=== PATIENT | male | born 1955 | race Caucasian/White ===

== ENCOUNTER → 2016-05-16 | Outpatient (CLI) | payer OTHER ==
[~2016-05-16] MED LIST: ACHD5005 PO; ASP325T; CA C1TAB26 PO; CARV20CP; CARV6.252 PO; CLON0.5T3; CYCL10TA9 PO; DEXL60CA5 PO; FLAXSEED OIL; FOLI1TAB7; HCT25T; NAPR220T29 PO; NIAC1TBM5; OMEG-90 PO; SILD25TA
--- NOTE | 2016-05-16 17:14 | Diagnostic Imaging Report ---
Renal ultrasound. INDICATION: History of renal disease. FINDINGS: The right kidney is 10.2 and the left kidney is 12 cm in length. There is no hydronephrosis or focal lesion. The urinary bladder is empty and, therefore, is not well evaluated. IMPRESSION: No hydronephrosis or focal lesion seen in either kidney. Dictated by: Dictated on workstation # [id number]
== END ==
LOC: RAD 15:11
PROVIDERS: ATTEND Nurse Practitioner Family
DX: I10 Essential (primary) hypertension (principal); Z84.1 Family history of disorders of kidney and ureter
CPT/HCPCS: 76770

== ENCOUNTER → 2016-07-26 | Outpatient (CLI) | payer OTHER | LOC: CARD 15:10 | PROVIDERS: ATTEND Internal Medicine Cardiovascular Disease | DX: I10 Essential (primary) hypertension (principal); E78.2 Mixed hyperlipidemia; I49.3 Ventricular premature depolarization; I65.23 Occlusion and stenosis of bilateral carotid arteries | CPT/HCPCS: 93225; 93226 ==

== ENCOUNTER → 2016-08-29 | Outpatient (CLI) | payer OTHER ==
--- NOTE | 2016-08-29 17:24 | STRESS TEST ---
PROCEDURE PHYSICIAN: DENISE CLIFFORD DATE OF PROCEDURE: 08/29/2016 EXERCISE STRESS ECHOCARDIOGRAM REPORT: REFERRING PHYSICIAN: Dr. Nguyen BASELINE HEART RATE: 60 BASELINE BLOOD PRESSURE: 125/76 BASELINE EKG: Sinus rhythm with no ischemic changes. IN SUMMARY: The patient started exercising with a baseline heart rate, blood pressure, EKG mentioned above. He was able to exercise for a total of 9 minutes on standard Johnson protocol, achieving maximum heart rate of 138, which is 86% of maximum expected heart rate. With peak exercise level, EKG was showing minimal nondiagnostic changes. Blood pressure at peak was 207/83. During recovery, heart rate and blood pressure returned to baseline. EKG returned to baseline. Echocardiographic images were acquired and reviewed in the parasternal long axis parasternal short axis, apical 4 chamber and apical 2 chamber views. Review of the images showed normal left ventricular size with normal contractility with no ischemic changes. Ejection fraction 60%. IN CONCLUSION: 1. Good exercise tolerance a total of 9 minutes on standard Johnson protocol. Total of 10.1 METs achieving 86% of maximum expected heart rate. 2. Hypertensive response to exercise, returned to baseline during recovery. 3. Minimal nondiagnostic EKG changes with exercise, returned to baseline during recovery. 4. Normal echocardiographic images at rest and with peak stress images with no ischemic changes. Estimated ejection fraction is 60%. Job ID: [id number] Dictated Date: 08/29/2016 16:59:58 Garage Door Installer Date: 08/29/2016 17:19:18 / rigo
== END ==
LOC: CARD 13:55
PROVIDERS: ATTEND Internal Medicine Cardiovascular Disease
DX: I10 Essential (primary) hypertension (principal); E78.2 Mixed hyperlipidemia; I49.3 Ventricular premature depolarization; I65.23 Occlusion and stenosis of bilateral carotid arteries

== ENCOUNTER → 2016-09-12 | Outpatient (CLI) | payer OTHER ==
--- NOTE | 2016-09-12 18:59 | Diagnostic Imaging Report ---
INDICATION: Chronic low back pain. No known injury TECHNIQUE: AP, Lateral and Spot imaging of the lumbar spine CORRELATION STUDY: None FINDINGS: Lumbar spinal alignment relatively anatomic. Lumbar vertebral body heights maintained. Asymmetric disc space narrowing mild severity at L4-L5 and L5-S1 levels. Minimal endplate lipping. SI joints without significant effusion or erosion. Mild vascular calcifications suggested about the abdominal aorta. IMPRESSION: No radiographic evidence for acute bony abnormality of the lumbar spine. Mild degenerative changes present. Dictated by: Dictated on workstation # [id number]
== END ==
LOC: RAD 16:39
PROVIDERS: ATTEND Nurse Practitioner Family
DX: M54.5 Low back pain (principal)
CPT/HCPCS: 72100

== ENCOUNTER → 2017-08-05 | Outpatient (CLI) | payer OTHER ==
--- NOTE | 2017-08-05 08:48 | Diagnostic Imaging Report ---
PROCEDURE: US Hepatic (Liver). TECHNIQUE: Multiple real-time grayscale images were obtained over the right upper quadrant in various projections. INDICATION: Elevated liver function studies. FINDINGS: Hepatic echotexture suggest at least mild steatosis but there is no evidence for solid or cystic liver mass. There is no intra-or extrahepatic bile duct dilatation. The gallbladder was normal. The portal venous flow is in the normal hepatopetal direction and the unobstructed right kidney appeared normal. The pancreas was largely obscured by bowel gas. There was no ascites. IMPRESSION: Echodense liver suggest steatosis. No biliary abnormality, ascites or fluid collection. Dictated by: Dictated on workstation # [id number]
== END ==
LOC: RAD 07:35
PROVIDERS: ATTEND Nurse Practitioner Family
DX: R74.8 Abnormal levels of other serum enzymes (principal)
CPT/HCPCS: 76705

== ENCOUNTER → 2018-07-28 | Outpatient (CLI) | payer OTHER ==
--- NOTE | 2018-07-28 16:53 | Diagnostic Imaging Report ---
INDICATION: Left flank pain COMPARISON: Lumbar spine radiograph dated 09/12/2016 FINDINGS: Single supine radiographic view of the abdomen was obtained and demonstrates nondistended loops of small bowel. There is no large collection of free peritoneal air. Moderate air and stool are seen scattered throughout the colon. There is subtle 1 cm extraosseous opacity projecting over the medial margins of the left 12th rib in the expected location of the left renal pelvis. Several small calcifications are also noted projecting over the bilateral hemipelvis and are likely on the basis of venous phleboliths. Bony structures show no gross acute abnormalities. IMPRESSION: 1. Nonobstructed small bowel gas pattern. 2. Moderate colonic air and stool. Please correlate for constipation 3. 1 cm subtle extraosseous opacity projecting over the left 12th rib. This could be artifact related to debris within the large or small bowel. Renal collecting system calculus however cannot be entirely excluded. May want to consider correlating with CT. Dictated by: Dictated on workstation # [id number]
== END ==
LOC: LAB 16:07
PROVIDERS: ATTEND Family Medicine
DX: M89.9 Disorder of bone, unspecified (principal); R10.9 Unspecified abdominal pain; R82.90 Unspecified abnormal findings in urine
CPT/HCPCS: 74018

== ENCOUNTER → 2018-08-27 | Outpatient (CLI) | payer OTHER ==
--- NOTE | 2018-08-27 16:20 | Diagnostic Imaging Report ---
PROCEDURE: CT urinary tract, rule out kidney stone. TECHNIQUE: Multiple contiguous axial images were obtained through the abdomen and pelvis without the use of intravenous contrast. Auto Exposure Controls were utilized during the CT exam to meet ALARA standards for radiation dose reduction. INDICATION: Back pain. FINDINGS: No comparison available. There is mild bibasilar atelectasis. Liver is normal. No focal liver lesions are seen. Gallbladder is normal. No biliary ductal dilation. Pancreas, spleen and adrenal glands are normal. The right kidney is normal without hydronephrosis. No right-sided renal or ureteral calculi. There is a nonobstructing 7 mm left lower pole renal stone. No ureteral calculi are seen on the left. No hydronephrosis. Urinary bladder is decompressed. Prostate is enlarged. There is extensive diverticulosis of the entire colon without evidence for active inflammation. The appendix is normal. No dilated loops of large or small bowel. No abdominal or pelvic lymphadenopathy. There is a fat-containing umbilical hernia. No free fluid or air. The abdominal aorta is normal in caliber. There are no suspicious osseous lesions. IMPRESSION: 1. Nonobstructing left lower pole renal stone. No ureteral calculi. 2. Diverticulosis without diverticulitis. Dictated by: Dictated on workstation # [id number]
== END ==
LOC: RAD 15:17
PROVIDERS: ATTEND Nurse Practitioner Family
DX: N20.0 Calculus of kidney (principal); K57.30 Diverticulosis of large intestine without perforation or abscess without bleeding
CPT/HCPCS: 74176

== ENCOUNTER 2018-09-04 05:52 | Outpatient (CLI) | payer OTHER ==
[~2018-09-04] VITALS: Ht 170.2 cm; Wt 92.5 kg
[2018-09-04] MEDS ORDERED: CLON0.5T13 PO (15:57)
[2018-09-04] MEDS ORDERED: CARV6.252 PO (15:57)
[2018-09-04] MEDS ORDERED: DULO60CA6 PO (15:57)
[2018-09-04] MEDS ORDERED: HYDR25TA4 PO (15:57)
[2018-09-04] MEDS ORDERED: DEXL60CA PO (15:57)
== END 2018-09-04 16:14 | disposition home or self-care (01) ==
LOC: PREOP 05:52
PROVIDERS: ATTEND Urology
DX: Z01.818 Encounter for other preprocedural examination (principal)

== ENCOUNTER → 2018-09-18 | Outpatient (CLI) | payer OTHER ==
[~2018-09-18] MED LIST changes: +CLON0.5T13 PO; +DEXL60CA PO; +DULO60CA6 PO; +HYDR-3812 PO; +HYDR25TA4 PO; +NITR-65 PO; +TAMS0.4C98 PO
--- NOTE | 2018-09-18 17:53 | Diagnostic Imaging Report ---
INDICATION: Nephrolithiasis. Comparison made with prior examination from 09/10/2018. FINDINGS: The bowel gas pattern is nonspecific. Previously seen stone overlying the left kidney is less apparent. There are some calcified phleboliths in the pelvis. IMPRESSION: 1. No evidence of residual stone in the left kidney following ESWL. 2. Nonspecific bowel gas pattern. Dictated by: Dictated on workstation # [id number]
== END ==
LOC: RAD 15:03
PROVIDERS: ATTEND Urology
DX: N20.0 Calculus of kidney (principal)
CPT/HCPCS: 74018

== ENCOUNTER 2018-12-10 08:11 | Outpatient (RCR) | payer OTHER ==
[~2018-12-10 08:11] MED LIST changes: -CLON0.5T13 PO; +CLON0.5T4 PO; -TAMS0.4C98 PO; +TMSL.4C PO
== END 2019-03-10 | disposition home or self-care (01) ==
LOC: CARD 08:11
PROVIDERS: ATTEND Physician Assistant
DX: I77.89 Other specified disorders of arteries and arterioles (principal); N52.9 Male erectile dysfunction, unspecified; I10 Essential (primary) hypertension; E78.5 Hyperlipidemia, unspecified; I49.2 Junctional premature depolarization
CPT/HCPCS: 93225; 93226

== ENCOUNTER → 2019-02-27 | Outpatient (CLI) | payer OTHER ==
[~2019-02-27] MED LIST changes: +CLON0.5T13 PO; -CLON0.5T4 PO; +TAMS0.4C98 PO; -TMSL.4C PO
== END ==
LOC: CARD 10:50
PROVIDERS: ATTEND Internal Medicine Cardiovascular Disease
DX: E78.2 Mixed hyperlipidemia (principal); I10 Essential (primary) hypertension; I65.23 Occlusion and stenosis of bilateral carotid arteries; R00.2 Palpitations
CPT/HCPCS: 93306

== ENCOUNTER → 2019-10-20 | Outpatient (CLI) | payer OTHER ==
[~2019-10-20] MED LIST changes: -CLON0.5T13 PO; +CLON0.5T4 PO; -HYDR-3812 PO; -TAMS0.4C98 PO; +TMSL.4C PO
--- NOTE | 2019-10-20 13:22 | Diagnostic Imaging Report ---
PROCEDURE: CT abdomen and pelvis without contrast. TECHNIQUE: Multiple contiguous axial images were obtained through the abdomen and pelvis without the use of intravenous contrast. Auto Exposure Controls were utilized during the CT exam to meet ALARA standards for radiation dose reduction. INDICATION: Recently diagnosed with prostate carcinoma. Correlation is made with prior CT from 08/27/2018. FINDINGS: The lung bases are clear. Liver and gallbladder are unremarkable. No biliary ductal dilatation is seen. Pancreas and spleen are unremarkable. No adrenal mass is detected. Kidneys are unremarkable. Previously noted nonobstructing calculus in the lower pole of left kidney is no longer visualized. There is no hydronephrosis. No ureteral calculi are seen. The aorta is nonaneurysmal. Small and large bowel loops are normal caliber. There is diverticulosis of the colon but no evidence of acute diverticulitis. A small fat-containing umbilical hernia is noted. There is no free fluid or fluid collection identified. No central retroperitoneal or mesenteric lymphadenopathy is seen. No definite iliac, obturator, or inguinal lymphadenopathy is seen. Prostate is enlarged. Bladder is decompressed. No definite osteoblastic lesions are seen. IMPRESSION: 1. No evidence of abdominal or pelvic lymphadenopathy or metastatic disease. 2. Uncomplicated diverticulosis. 3. Prostatomegaly. Dictated by: Dictated on workstation # [id number]
--- NOTE | 2019-10-20 17:09 | Diagnostic Imaging Report ---
INDICATION: New diagnosis of prostate cancer. COMPARISON: No priors for direct comparison. The study interpreted in correlation with an abdominal pelvic CT of this same date. TECHNIQUE: The patient received an intravenous dose of 26.4 mCi technetium 99 MDP and after 4 hours, whole-body planar imaging performed. FINDINGS: Uptake in the right hemimandible is very likely on an odontogenic bases. Calvarial uptake normal. Sternum, manubrium and ribs normal. There is mild degenerative change about the spine as well as right-sided focal costovertebral junction uptake at the level of the right 5th rib medially. There are mild arthritic changes about the shoulders and knees as well as wrists. No suspicious finding. IMPRESSION: No suspicious bone scan findings, likely odontogenic/periodontal mandibular uptake and likely mild focal posttraumatic or degenerative uptake at the left costovertebral junction. Dictated by: Dictated on workstation # [id number]
== END ==
LOC: CARD 12:00
PROVIDERS: ATTEND Urology
DX: C61 Malignant neoplasm of prostate (principal); K57.30 Diverticulosis of large intestine without perforation or abscess without bleeding; N40.0 Benign prostatic hyperplasia without lower urinary tract symptoms
CPT/HCPCS: 74176; 78306; A9503

== ENCOUNTER 2019-11-19 05:45 | Outpatient (CLI) | payer OTHER ==
[~2019-11-19] VITALS: Ht 170 cm; Wt 90.9 kg
[2019-11-19] MEDS ORDERED: OMEG-9 PO (11:51)
[2019-11-19] MEDS ORDERED: FOLI0.8C PO (11:51)
[2019-11-19] MEDS ORDERED: LOSA50TA63 PO (11:51)
[2019-11-19] MEDS ORDERED: DULO30CA49 PO (11:51)
[2019-11-19] MEDS ORDERED: CHOL20003 PO (11:51)
[2019-11-19] MEDS ORDERED: DILT120T11 PO (11:51)
[2019-11-19] MEDS ORDERED: PEDI18TA2 PO (11:51)
== END 2019-11-19 11:59 ==
LOC: PREOP 05:45
PROVIDERS: ATTEND Surgery
DX: Z01.818 Encounter for other preprocedural examination (principal)

== ENCOUNTER 2019-11-26 10:11 | Day surgery (SDC) | payer OTHER ==
[~2019-11-26] VITALS: Ht 170 cm; Wt 90.9 kg
[2019-11-26] VITALS (9 sets, daily range): BP systolic 124–144; BP diastolic 71–89
[~2019-11-26 10:11] MED LIST changes: +CHOL20003 PO; +DILT120T11 PO; +DULO30CA49 PO; +FOLI0.8C PO; +LOSA50TA63 PO; +OMEG-9 PO; +PEDI18TA2 PO
--- NOTE | 2019-11-26 10:34 | Progress Note-Pre Operative ---
Pre-Operative Progress Note H&P Reviewed The H&P was reviewed, patient examined and no changes noted. Date Seen by Provider: Nov 26, 2019 Time Seen by Provider: 10:34 Date H&P Reviewed: Nov 26, 2019 Time H&P Reviewed: 10:34 Pre-Operative Diagnosis: left neck mass DEBORAH CHAUDHARY DO Nov 26, 2019 10:34
[2019-11-26] MEDS ORDERED: LACTATED RINGERS 1,000 ML IV PRN (10:39)
[2019-11-26] MEDS ORDERED: CLINDAMYCIN 600 MG/50 ML IVPB 50 ML IV ONE (10:45)
[2019-11-26] MEDS ORDERED: FAMOTIDINE 20MG/2ML IV (PEPCID) ONE (10:51)
[2019-11-26] MEDS ORDERED: ONDANSETRON 4 MG/2 ML (SDV) Z0FRAN IV ONE (11:00)
[2019-11-26] MEDS ORDERED: FAMOTIDINE 20MG/2ML IV (PEPCID) IV ONE (11:00)
[2019-11-26] MEDS ORDERED: BUP/EPI 0.25% 1:200,000 (MARCAINE) 30 ML VIAL ONE (11:11)
[2019-11-26] MEDS ORDERED: proPOfol 200 MG/20 ML (DIPRIVAN) VIAL IV ONE (12:26)
[2019-11-26] MEDS ORDERED: fentaNYL INJECTION 100 MCG/2 ML AMP ONE (12:27)
[2019-11-26] MEDS ORDERED: LIDOCAINE PF 2% 5 ML (XYLOCAINE) VIAL ONE (12:29)
[2019-11-26] MEDS ORDERED: MIDAZOLAM 2 MG/2 ML (VERSED) VIAL ONE (12:29)
[2019-11-26] MEDS ORDERED: SEVOFLURANE (ULTANE) 15 ML INHAL SOLN ONE ×4 (12:30→14:42)
[2019-11-26] MEDS ORDERED: ONDANSETRON 4 MG/2 ML (SDV) Z0FRAN ONE (12:39)
[2019-11-26] MEDS ORDERED: GLYCOPYRROLATE 0.2 MG/ML (ROBINUL) 2 ML VIAL ONE (14:31)
[2019-11-26] MEDS ORDERED: NEOSTIGMINE 3 MG/3 ML VIAL ONE (14:31)
[2019-11-26] MEDS ORDERED: ROCURONIUM 10 MG/ML 5 ML SYRINGE IV ONE (14:31)
--- NOTE | 2019-11-26 14:42 | Progress Note-Post Operative ---
Post-Operative Progess Note Surgeon (s)/Rn Rehab (s) Surgeon DEBORAH CHAUDHARY DO Rn Rehab: na Pre-Operative Diagnosis left neck mass Post-Operative Diagnosis left neck cyst Procedure & Operative Findings Date of Procedure 11/26/19 Procedure Performed/Findings excision left neck cyst 3x1.8 cm Anesthesia Type gen Estimated Blood Loss Estimated blood loss (mL): min Specimens/Packing Specimens Removed skin/cyst/subcutaneous tissue DEBORAH CHAUDHARY DO Nov 26, 2019 14:42
[2019-11-26] MEDS ORDERED: HYDR-4226 PO (14:48)
--- NOTE | 2019-11-26 14:49 | Discharge Inst-Simple/Standard ---
Discharge Inst-Standard Discharge Medications New, Converted or Re-Newed RX: RX on Chart Patient Instructions/Follow Up Plan of Care/Instructions/FU: 12-14 days Leo Activity as Tolerated: No Discharge Diet: Regular Diet Other Inst to Patient Follow up Appt: Make appointment for 12-14 days. Instructions: No strenuous activity. May shower in 24 hours, no tub bath or soaking. Use incentive spirometer at home as directed. No Smoking Skin/Wound Care: Keep area clean and dry. Symptoms to Report: Appetite Changes, Extremity Discoloration, Numbness/Tingling, Swelling Increased, Bleeding Excessive, Eyesight Changes, Pain Increased, Urine Color Change, Constipation(Persistent), Fever over 101 degree F, Pain/Pressure in chest, Urinating Difficulty, Cough Up/Vomit Blood, Heart Beat Irreg/Pounding, Pain/Pressure in jaw, Vaginal Bleeding Increase, Cramps in feet or legs, Lightheadedness, Pain/Pressure in shoulder, Diarrhea(Persistent), Memory Changes Suddenly, Questions/Concerns, Weight gain consecutive days, Dizziness/Fainting, Nausea/Vomiting, Shortness of Breath, Weight gain over 2 pounds If questions or concerns contact your physician Or seek help at emergency department. DEBORAH CHAUDHARY DO Nov 26, 2019 14:49
[2019-11-26] MEDS ORDERED: morphine INJ 10 MG/ML 1ML (SYR OR VIAL) IVP ONE (15:00)
[2019-11-26] MEDS ORDERED: ONDANSETRON 4 MG/2 ML (SDV) Z0FRAN IVP PRN (15:00)
--- NOTE | 2019-11-26 15:05 | Anesthesia-General Post-Op ---
General Patient Condition Mental Status/LOC: Same as Preop Cardiovascular: Satisfactory Nausea/Vomiting: Absent Respiratory: Satisfactory Pain: Controlled Complications: Absent Post Op Complications Complications None Follow Up Care/Instructions Patient Instructions None needed. Anesthesia/Patient Condition Patient Condition Patient is doing well, no complaints, stable vital signs, no apparent adverse anesthesia problems. VANDANA MALLORY DO Nov 26, 2019 15:05
--- NOTE | 2019-11-27 06:45 | OPERATIVE REPORT ---
DATE OF SERVICE: 11/26/2019 PREOPERATIVE DIAGNOSIS: Left neck mass. POSTOPERATIVE DIAGNOSIS: Left neck cyst. PROCEDURE: Excision of left neck cyst 3 x 1.8 cm. SURGEON: Deborah Bailey DO ANESTHESIA: General. ESTIMATED BLOOD LOSS: Minimal. COMPLICATIONS: None. SPECIMENS: Skin cyst and subcutaneous tissue. INDICATIONS: The patient is a 64-year-old male with a mass on the left posterior neck. He had this cut open to see if there is anything within this area and nothing was able to be removed at that time he states. The patient was sent for excision with myself. He understands risks and benefits of procedure and wished to proceed with procedure. Consent was signed in the chart. DESCRIPTION OF PROCEDURE: The patient was taken to the operating suite, prepped and draped in sterile fashion and the right lateral recumbent position. Timeout was performed. Palpable mass on the left lower portion of the neck, which skin and subcutaneous tissue was started to be dissected around the firm palpable mass. An elliptical incision was made in order to remove the small portion of skin and also to help in retracting. The mass was then dissected around with both Metzenbaums and cautery. Once removed, hemostasis was achieved with cautery. The wound was irrigated with copious amounts of irrigation. The skin was then closed using 3-0 Prolene in simple interrupted fashion. The patient then had the area washed and dried and sterile bandage was applied. The patient tolerated procedure well without any complications. He was taken to recovery room in stable condition. Job ID: [id number] DocumentID: [id number] Dictated Date: 11/26/2019 19:18:19 Women'S Swim Coach Date: 11/27/2019 06:43:57 Dictated By: DEBORAH BAILEY DO [facility]
== END 2019-11-26 16:45 | disposition home or self-care (01) ==
LOC: SDC 10:11
PROVIDERS: ATTEND Surgery
DX: D17.0 Benign lipomatous neoplasm of skin and subcutaneous tissue of head, face and neck (principal); I10 Essential (primary) hypertension; F41.9 Anxiety disorder, unspecified; G47.33 Obstructive sleep apnea (adult) (pediatric); E78.5 Hyperlipidemia, unspecified; I65.29 Occlusion and stenosis of unspecified carotid artery; Z79.899 Other long term (current) drug therapy; Z79.82 Long term (current) use of aspirin; Z88.0 Allergy status to penicillin; Z88.1 Allergy status to other antibiotic agents; Z83.3 Family history of diabetes mellitus; Z82.3 Family history of stroke
CPT/HCPCS: 87081; 88304

== ENCOUNTER → 2020-07-27 | Outpatient (CLI) | payer OTHER ==
[~2020-07-27] MED LIST changes: +HYDR-4226 PO
[2020-07-27 10:57] VITALS: BP 130/78
== END ==
LOC: CARD 10:02
PROVIDERS: ATTEND Internal Medicine Cardiovascular Disease
DX: I49.8 Other specified cardiac arrhythmias (principal)
CPT/HCPCS: 93351

== ENCOUNTER 2021-04-13 05:32 | Outpatient (CLI) | payer OTHER ==
[~2021-04-13] VITALS: Ht 170.2 cm; Wt 95.4 kg
[~2021-04-13 05:32] MED LIST changes: -DULO60CA6 PO; +DULO60CA7 PO
[2021-04-13] MEDS ORDERED: ACHD5005 PO (15:15)
[2021-04-13] MEDS ORDERED: ASPI81TA16 PO (15:15)
== END 2021-04-13 15:22 | disposition home or self-care (01) ==
LOC: PREOP 05:32
PROVIDERS: ATTEND Surgery
DX: Z01.818 Encounter for other preprocedural examination (principal)

== ENCOUNTER 2021-04-20 06:15 | Day surgery (SDC) | payer OTHER ==
[~2021-04-20] VITALS: Ht 170 cm; Wt 95.4 kg
[2021-04-20] VITALS (12 sets, daily range): BP systolic 107–140; BP diastolic 58–82
[~2021-04-20 06:15] MED LIST changes: +ASPI81TA16 PO
[2021-04-20] MEDS ORDERED: ceFAZolin 2 GM IV Premixed 50 ML IV ONE (06:30)
[2021-04-20] MEDS ORDERED: ceFAZolin 2 GM IV Premixed 50 ML IV NR (06:45)
[2021-04-20] MEDS ORDERED: ROCURONIUM 10 MG/ML 5 ML SYRINGE IV ONE (06:54)
[2021-04-20] MEDS ORDERED: ONDANSETRON 4 MG/2 ML (SDV) Z0FRAN ONE ×2 (06:54→07:09)
[2021-04-20] MEDS ORDERED: proPOfol 200 MG/20 ML (DIPRIVAN) VIAL IV ONE (06:54)
[2021-04-20] MEDS ORDERED: LIDOCAINE PF 2% 5 ML (XYLOCAINE) VIAL ONE (06:54)
[2021-04-20] MEDS ORDERED: fentaNYL INJ 100 MCG/2 ML AMP ONE (06:55)
[2021-04-20] MEDS ORDERED: MIDAZOLAM 2 MG/2 ML (VERSED) VIAL ONE (06:55)
[2021-04-20] MEDS: LACTATED RINGERS 1,000 ML IV PRN ×2 (07:04→08:32)
[2021-04-20] MEDS ORDERED: SCOPOLAMINE 1.5 MG (TRANSDERM-SCOP) PATCH ONE (07:09)
[2021-04-20] MEDS ORDERED: FAMOTIDINE 20MG/2ML IV (PEPCID) ONE (07:10)
[2021-04-20] MEDS ORDERED: ONDANSETRON 4 MG/2 ML (SDV) Z0FRAN IV ONE (07:15)
[2021-04-20] MEDS ORDERED: SCOPOLAMINE 1.5 MG (TRANSDERM-SCOP) PATCH TOP ONE (07:15)
[2021-04-20] MEDS ORDERED: FAMOTIDINE 20MG/2ML IV (PEPCID) IV ONE (07:15)
[2021-04-20] MEDS ORDERED: LIDOCAINE/EPI 1%-1:200,000 (XYLOCAINE) 30 ML VIAL ONE (07:22)
--- NOTE | 2021-04-20 07:54 | Progress Note-Pre Operative ---
Pre-Operative Progress Note H&P Reviewed The H&P was reviewed, patient examined and no changes noted. Date Seen by Provider: Apr 20, 2021 Time Seen by Provider: 07:44 Date H&P Reviewed: Apr 20, 2021 Time H&P Reviewed: 07:54 Pre-Operative Diagnosis: incisional hernia DEBORAH CHAUDHARY DO Apr 20, 2021 07:54
[2021-04-20] MEDS ORDERED: GLYCOPYRROLATE 0.2 MG/ML (ROBINUL) 2 ML VIAL ONE (09:04)
[2021-04-20] MEDS ORDERED: NEOSTIGMINE 3 MG/3 ML VIAL ONE (09:04)
--- NOTE | 2021-04-20 09:31 | Progress Note-Post Operative ---
Post-Operative Progess Note Surgeon (s)/Accounting Intern (s) Surgeon DEBORAH CHAUDHARY DO Accounting Intern: DR. Luna Pre-Operative Diagnosis incisional hernia Post-Operative Diagnosis same Procedure & Operative Findings Date of Procedure 04/20/21 Procedure Performed/Findings robotic assisted incisional hernia repair with mesh Anesthesia Type general Estimated Blood Loss Estimated blood loss (mL): minimal Specimens/Packing Specimens Removed na DEBORAH CHAUDHARY DO Apr 20, 2021 09:31
[2021-04-20] MEDS ORDERED: ACHD5005 PO (09:32)
--- NOTE | 2021-04-20 09:33 | Discharge Inst-Simple/Standard ---
Discharge Inst-Standard Discharge Medications New, Converted or Re-Newed RX: Transmitted to Pharmacy Patient Instructions/Follow Up Plan of Care/Instructions/FU: 2-3 weeks Leo Activity as Tolerated: No Discharge Diet: Regular Diet Other Inst to Patient Follow up Appt: Make appointment for 2-3 week. Instructions: No lifting greater than 10 pounds. No strenuous activity. May shower in 24 hours, no tub bath or soaking. Use incentive spirometer at home as directed. No Smoking Skin/Wound Care: You have special glue over your incision that will fall off on it's own. Symptoms to Report: Appetite Changes, Extremity Discoloration, Numbness/Tingling, Swelling Increas ed, Bleeding Excessive, Eyesight Changes, Pain Increased, Urine Color Change, Constipation(Persistent), Fever over 101 degree F, Pain/Pressure in chest, Urinating Difficulty, Cough Up/Vomit Blood, Heart Beat Irreg/Pounding, Pain/Pressure in jaw, Vaginal Bleeding Increase, Cramps in feet or legs, Lightheadedness, Pain/Pressure in shoulder, Diarrhea(Persistent), Memory Changes Suddenly, Questions/Concerns, Weight gain consecutive days, Dizziness/Fainting, Nausea/Vomiting, Shortness of Breath, Weight gain over 2 pounds If questions or concerns contact your physician Or seek help at emergency department. DEBORAH CHAUDHARY DO Apr 20, 2021 09:33
[2021-04-20] MEDS ORDERED: SEVOFLURANE (ULTANE) 15 ML INHAL SOLN ONE (09:35)
[2021-04-20] MEDS ORDERED: HYDROmorphone 2 MG/ML VIAL (DILAUDID) IV ONE (10:00)
[2021-04-20] MEDS ORDERED: MEPERIDINE (DEMEROL) INJ 50 MG/ML IVP ONE (10:00)
[2021-04-20] MEDS ORDERED: morphine INJ 10 MG/ML 1ML (SYR OR VIAL) IVP ONE (10:00)
[2021-04-20] MEDS ORDERED: PROMETHAZINE INJ 25 MG/ML (PHENERGAN) AMP IVP ONE (10:00)
[2021-04-20] MEDS: ONDANSETRON 4 MG/2 ML (SDV) Z0FRAN IVP PRN ×2 (10:57→11:00)
--- NOTE | 2021-04-20 11:23 | Anesthesia-General Post-Op ---
General Patient Condition Mental Status/LOC: Same as Preop Cardiovascular: Satisfactory Nausea/Vomiting: Absent Respiratory: Satisfactory Pain: Controlled Complications: Absent Post Op Complications Complications None Follow Up Care/Instructions Patient Instructions None needed. Anesthesia/Patient Condition Patient Condition Patient is doing well, no complaints, stable vital signs, no apparent adverse anesthesia problems. No complications reported per nursing. LEANNE RICHARD CRNA Apr 20, 2021 11:23
[2021-04-20] MEDS ORDERED: HYDROcodone/APAP 5 MG/325 MG (LORTAB) TAB PO ONE (11:45)
[2021-04-20] MEDS ORDERED: HYDROcodone/APAP 5 MG/325 MG (LORTAB) TAB ONE (11:50)
--- NOTE | 2021-04-21 21:07 | OPERATIVE REPORT ---
DATE OF SERVICE: 04/20/2021 PREOPERATIVE DIAGNOSIS: Incisional hernia. POSTOPERATIVE DIAGNOSIS: Incisional hernia. PROCEDURE: Robotic-assisted incisional hernia repair with mesh. SURGEON: Deborah Bailey DO GEOTECHNICAL LABORATORY TECHNICIAN: Dr. Luna, assisted in retraction, dissection and closure, identification of anatomy. ANESTHESIA: General. ESTIMATED BLOOD LOSS: Minimal. COMPLICATIONS: None. INDICATIONS: The patient is a 65-year-old male who had robotic prostatectomy. He developed incisional hernia. He wishes to have this repaired. He understands risks and benefits and wishes to proceed. Consent was signed in the chart. DESCRIPTION OF PROCEDURE: The patient was taken to the operating suite, was prepped and draped in sterile fashion. Timeout was performed. Local anesthetic was infiltrated in left upper quadrant. A #11 blade scalpel was used to make a skin incision and cautery used to dissect down to the fascia, which was then scored, the muscle was divided. Posterior fascia was then divided, and the abdomen was then entered. A peterson trocar was inserted, and pneumoperitoneum was achieved. Under direct visualization of the laparoscope, 8 mm trocar was placed in the left lower quadrant and left middle abdomen. These were placed under direct visualization of the laparoscope. The robot was then docked. The defect was then visualized. Cautery scissors were then used to take down the falciform ligament. The incisional hernia defect was then closed with 0 V-Loc in a running fashion. Echo Ventralight mesh was then inserted and the abdomen was grasped through a stab incision using 2-0 180-day V-Loc circumferentially, the mesh was secured in place after the pressure had been decreased. Then continued to be secured down the middle of the mesh after the balloon was removed. The robot was then undocked. The trocars were removed. The fascial defect of the 12 mm trocar was then closed with 0 Vicryl in a [id number] fashion. The skin was then closed using 4-0 Monocryl. The abdomen was then washed and dried. Skin Affix was placed over the incisions. The patient tolerated procedure well without any complications, taken to recovery room in stable condition. Job ID: [id number] DocumentID: [id number] Dictated Date: 04/21/2021 17:56:10 Yardmaster Date: 04/21/2021 21:07:28 Dictated By: DEBORAH BAILEY DO
== END 2021-04-20 13:00 | disposition home or self-care (01) ==
LOC: SDC 06:15
PROVIDERS: ATTEND Surgery
DX: K43.2 Incisional hernia without obstruction or gangrene (principal); E66.9 Obesity, unspecified; L72.9 Follicular cyst of the skin and subcutaneous tissue, unspecified; Z68.33 Body mass index [BMI] 33.0-33.9, adult
CPT/HCPCS: 49654; 87081; 94664; C1781

== ENCOUNTER → 2021-07-03 | Outpatient (CLI) | payer OTHER ==
[~2021-07-03] MED LIST changes: +GADOTERATE 0.5 MMOL/ML (CLARISCAN) 20 ML VIAL IV ONE
--- NOTE | 2021-07-03 16:52 | Diagnostic Imaging Report ---
PROCEDURE: MR imaging of the brain with and without contrast. TECHNIQUE: Multiplanar, multisequence MR imaging of the brain was performed with and without contrast. INDICATION: Small vessel disease. Compared with a brain MRI 01/01/2017. Unchanged from prior and best seen on the FLAIR pulse sequences, there are scattered multifocal supratentorial bilateral subcortical and to a lesser extent periventricular white matter changes without mass effect without diffusion restriction and without enhancement. The appearance is most suggestive of mild nonspecific chronic small vessel disease without appreciable interval progression. Some old lacunar infarct versus prominent Virchow-Marcial space in the left temporal lobe chronic. No abnormal enhancement after contrast is present. There are no foci of abnormal diffusion restriction. There were no findings of an acute or subacute ischemic infarct. There is normal enhancement of the major dural venous sinuses. There is no evidence for an elevation of the intracerebral pressures. There are no abnormal extra-axial fluid collections. The orbits and paranasal sinuses nonacute. The brainstem and posterior fossa are unremarkable. IMPRESSION: Stable chronic mild nonspecific white matter disease favored to reflect chronic small vessel sequelae. No acute or suspicious abnormality. No change. Dictated by: Dictated on workstation # [id number]
== END ==
LOC: RAD 13:28
PROVIDERS: ATTEND Family Medicine
DX: R90.82 White matter disease, unspecified (principal); I77.9 Disorder of arteries and arterioles, unspecified
CPT/HCPCS: 70553